=== PATIENT | female | born 1935 | race Caucasian/White ===

== ENCOUNTER 2021-09-19 12:55 | Emergency (ER) | payer OTHER ==
[2021-09-19 13:43] LABS: EOSINOPHIL 0.8 % (0-7); HCT 41.9 % (37.0-47.0); HGB 14.1 g/dl (12.5-16.0); LYMPHOCYTE 22.6 % (15-48); MCHC 33.7 g/dL (32.0-36.0); MONOCYTE 6.9 % (0-12); MPV 9.3 fL (6.0-9.5); NEUTROPHIL 68.4 % (41-80); NRBC 0; PLT 313 K/uL (150-400); RBC 4.87 M/uL (4.20-5.40); RDW 12.5 % (11.5-14.0); WBC 8.6 K/uL (4.0-10.5)
[2021-09-19 13:47] LABS: INR 1.1 (0.9-1.2); PROTHROMBIN TIME 13.6 SECONDS (11.8-13.4)
[2021-09-19 13:48] LABS: PTT 30.3 SECONDS (24.4-34.7)
[2021-09-19 13:49] LABS: IRON % SATURATION 20.6 %SAT (20-50)
[2021-09-19 14:33] LABS: BILIRUBIN 1+ mg/dL (NEGATIVE); BLOOD NEGATIVE Ery/uL (NEGATIVE); CLARITY CLEAR (CLEAR); COLOR YELLOW (YELLOW); GLUCOSE (U) NORMAL (NORMAL); LEUKOCYTES 1+ Leu/uL (NEGATIVE); NITRITE NEGATIVE (NEGATIVE); PROTEIN NEGATIVE (NEGATIVE); SPECIFIC GRAVITY >=1.030 (1.001-1.030)
[2021-09-19 14:49] LABS: BILIRUBIN - TOTAL 0.5 mg/dL (0.2-1.0); BUN/CREAT RATIO (CALC) 30.9 RATIO; CREATININE 0.55 mg/dL (0.51-0.95); GLOBULIN (CALCULATION) 4.2 g/dL; MAGNESIUM 2.1 mg/dL (1.8-2.4); TOTAL PROTEIN 7.2 g/dL (6.4-8.2)
[2021-09-19 14:56] LABS: BACTERIA 1+; URINARY RBC RARE
[2021-09-19 14:59] LABS: CORONAVIRUS 2019 SARS-COV-2 NEGATIVE (NEGATIVE); INFLUENZA A NAA NEGATIVE (NEGATIVE)
== END 2021-09-19 17:55 | disposition home or self-care (01) ==
LOC: FER 12:55
PROVIDERS: Emergency Medicine
DX: G62.9 Polyneuropathy, unspecified (principal); F32.A Depression, unspecified; E87.6 Hypokalemia; R53.81 Other malaise; I10 Essential (primary) hypertension; Z88.0 Allergy status to penicillin; Z88.2 Allergy status to sulfonamides; Z20.822 Contact with and (suspected) exposure to COVID-19
CPT/HCPCS: 36415; 71045; 80053; 81001; 83540; 83550; 83735; 84145; 84443; 84484; 85025; 85610; 85730; 87088; 93005; U0002